=== PATIENT | male | born 1940 | race Caucasian/White ===

== ENCOUNTER 2023-12-01 15:10 | Outpatient (CLI) | payer MEDICARE, SELFPAY ==
--- NOTE | 2023-12-01 09:37 | DI.RAD_ITS ---
Exam(s) XR KNEE LT 4V AP,LAT,DIONNA,PAT EXAM: XR KNEE LT 4V AP,LAT,DIONNA,PAT CLINICAL HISTORY: eval L knee OA. TECHNIQUE: 2D digital imaging was performed. Four views. COMPARISON: No exams were available for comparison FINDINGS: BONES: No acute fracture is present. No bony destructive lesion is seen. Enthesophyte upper pole p atella. JOINTS: Severe narrowing of the lateral femoral tibial joint space with a [id number] appearance. P rominent periarticular spurring. For ring at the articular aspect of the patella. The patellofemora l joint space is maintained. No joint effusion is seen. SOFT TISSUE: Normal. IMPRESSION: Severe degenerative changes of lateral femoral tibial joint. DATA REPOSITORY: RADIATION DOSE DELIVERED:
== END 2023-12-01 15:11 | disposition home or self-care (01) ==
LOC: DIORS 15:11
PROVIDERS: PCP Family Medicine; Referring Provider Family Medicine; Visit Provider Student in an Organized Health Care Education/Training Program
DX: M17.12 Unilateral primary osteoarthritis, left knee; M21.062 Valgus deformity, not elsewhere classified, left knee
CPT/HCPCS: 99204; 73564

== ENCOUNTER 2023-12-22 15:23 | Outpatient (CLI) | payer MEDICARE, SELFPAY ==
--- NOTE | 2023-12-22 13:00 | DI.RAD_ITS ---
Exam(s) XR KNEE LT 1V XR STANDING ALIGNMENT EXAM: XR STANDING ALIGNMENT CLINICAL HISTORY: TKR Planning. TECHNIQUE: 2D digital imaging was performed. Standing AP views were performed from the pelvis throu gh the ankles. COMPARISON: CR XR KNEE LT 4V AP,LAT,DIONNA,PAT from 12/01/2023 CR XR KNEE LT 1V from 12/22/2023 FINDINGS: BONES: No acute fracture is present. No bony destructive lesion is seen. Leg length discrepancy: Proximally 2 centimeter overall leg length discrepancy with the right femoral head projecting superior to the left. JOINTS: Knees: Mild narrowing of the right medial femoral tibial joint space. Severe narrowing of th e lateral femoral tibial joint space of the left knee with periarticular spurring. Valgus angulation . Spurring at the articular aspect of the patella. Enthesophyte at quadriceps insertion. The ankle joints are unremarkable. The hip joints are unremarkable. SOFT TISSUE: Lower leg edema on the right. IMPRESSION: Severe degenerative changes of the lateral femoral tibial joint of the left knee.. Roughly 2 centimeter overall leg length discrepancy. DATA REPOSITORY: RADIATION DOSE DELIVERED:
[2023-12-22 14:19] LABS: HCT 38.7 % (40.0-50.0); HGB 12.5 g/dL (13.5-17.5); MCH 30.9 pg (27.0-33.0); MCHC 32.3 % (32.0-36.0); MCV 96 fL (80-95); MPV 10.7 fL (8.0-11.0); Platelet Count 256 10^3/uL (130-400); RBC 4.04 10^6/uL (4.36-5.78); RDW 14.9 % (11.8-14.1)
[2023-12-22 14:31] LABS: Anion Gap 7.1 mmol/L (3-11); BUN 35 mg/dL (7-18); CO2 29.9 mmol/L (21.0-32.0); CREATININE 1.3 mg/dL (0.70-1.30); Calcium 8.9 mg/dL (8.5-10.1); Chloride 106 mmol/L (98-107); Estimated GFR 55.19 (mL/min/1.73m2); Glucose 128 mg/dL (74-106); Potassium 4.8 mmol/L (3.5-5.1); Sodium 143 mmol/L (136-145)
== END 2023-12-22 15:24 | disposition home or self-care (01) ==
LOC: DIORS 15:23
PROVIDERS: Student in an Organized Health Care Education/Training Program; PCP Family Medicine; Visit Provider Physician Assistant
DX: M17.12 Unilateral primary osteoarthritis, left knee (principal); M21.062 Valgus deformity, not elsewhere classified, left knee; Z01.818 Encounter for other preprocedural examination
CPT/HCPCS: 80048; 85027; 73560; 77073

== ENCOUNTER 2023-12-31 07:05 | Day surgery (SDC) | payer MEDICARE, SELFPAY ==
--- NOTE | 2023-12-30 19:04 | W.ANESPRE ---
General Info Date of Service Date Performed: 12/31/23 Height: 6 ft Weight: 111.13 kg Body Mass Index (BMI): 33.2 Surgical Procedure: Operation Date: 12/31/23 10:40 Proposed Procedure Side Surgeon p Knee Total Arthroplasty w/OrthAlign Left Aren Austin MD Meds Allergies and Home Medications Allergies Allergy/AdvReac Type Severity Reaction Status Date / Time No Known Allergies Allergy Verified 12/31/23 07:13 Home Medication Medication Instructions Recorded lisinopril 40 mg tablet 40 mg PO DAILY 10/28/23 metoprolol succinate 25 mg 25 mg PO DAILY 10/28/23 tablet,extended release 24 hr simvastatin 40 mg tablet 40 mg PO DAILY 10/28/23 tamsulosin 0.4 mg capsule 0.4 mg PO DAILY 10/28/23 finasteride 5 mg tablet 5 mg PO DAILY 12/22/23 acetaminophen 500 mg tablet 1,000 mg (2 x 500 mg) PO TID #90 12/31/23 tabs aspirin 81 mg tablet,delayed 81 mg PO BID #60 tabs 12/31/23 release celecoxib 200 mg capsule 200 mg PO BID #60 caps 12/31/23 dexamethasone 4 mg tablet 4 mg PO DAILY #2 tabs 12/31/23 gabapentin 300 mg capsule 300 mg PO QHS #14 caps 12/31/23 oxycodone 5 mg tablet 5 mg PO Q4H PRN pain #20 tabs 12/31/23 pantoprazole 40 mg tablet,delayed 40 mg PO DAILY #30 tabs 12/31/23 release Current Visit Medications: Current Medications Generic Name Dose Route Start Last Admin Trade Name Freq PRN Reason Stop Dose Admin Ringer's Solution 1,000 mls @ 80 mls/hr 12/31/23 06:00 IV 12/31/23 23:59 INFUSION ORAL Cefazolin Sodium/Dextrose 2 gm in 50 mls @ 100 mls/hr 12/31/23 06:00 Ancef Duplex IVPB 12/31/23 23:59 PREOP ORAL IV Miscellaneous Supplies 1 each 12/31/23 06:00 Iv Access IV 12/31/23 23:59 DIRECTED ORAL Sodium Chloride 0 ml 12/31/23 06:00 Normal Saline Flush 10 Ml Syr IV 12/31/23 23:59 PRN PRN Sodium Chloride 0 ml 12/31/23 06:00 Normal Saline 10 Ml Vial IJ 12/31/23 23:59 DIRECTED PRN Sterile Water 0 ml 12/31/23 06:00 Water,Injection,Sterile 10 Ml Vial IJ 12/31/23 23:59 DIRECTED PRN PFSH Active Problems Active Problems: Problem Status Onset Code Acquired genu valgum of left knee M21.062 Localized osteoarthritis of left knee M17.12 Borderline type 2 diabetes mellitus R73.03 Obesity E66.9 Hypertension I10 Medical History Medical History BPH (benign prostatic hyperplasia) Lumbar spondylosis Allergic rhinitis History of gastric ulcer Surgical History Surgical History H/O colectomy Ileocolectomy 02/17/15 History of umbilical hernia repair Tobacco Smoking/Tobacco Use Status: Never Alcohol Alcohol Intake: never Substance Use Substance use: Never Substance use type: does not use Vital Signs and Lab Results Vital Signs Most Recent Vital Signs in EMR: Temp Pulse Resp BP Pulse Ox 36.3 C L 64 16 150/75 H 95 12/31/23 07:15 12/31/23 07:15 12/31/23 07:15 12/31/23 07:15 12/31/23 07:15 Lab Results Blood Type / Crossmatch: No Data to Display Complete Blood Count: White Blood Count 8.40 10^3/uL (4.4-10.8) 12/22/23 14:09 Red Blood Count 4.04 10^6/uL (4.36-5.78) L 12/22/23 14:09 Hemoglobin 12.5 g/dL (13.5-17.5) L 12/22/23 14:09 Hematocrit 38.7 % (40.0-50.0) L 12/22/23 14:09 Platelet Count 256 10^3/uL (130-400) 12/22/23 14:09 Complete Metabolic Panel: Sodium 143 mmol/L (136-145) 12/22/23 13:51 Potassium 4.8 mmol/L (3.5-5.1) 12/22/23 13:51 Chloride 106 mmol/L (98-107) 12/22/23 13:51 Carbon Dioxide 29.9 mmol/L (21.0-32.0) 12/22/23 13:51 BUN 35 mg/dL (7-18) H 12/22/23 13:51 Creatinine 1.3 mg/dL (0.70-1.30) 12/22/23 13:51 Est GFR (CKD-EPI 2020) 55.19 (mL/min/1.73m2) 12/22/23 13:51 Calcium 8.9 mg/dL (8.5-10.1) 12/22/23 13:51 Glucose 128 mg/dL (74-106) H 12/22/23 13:51 Liver Function Panel: No Data to Display Coagulation Panel: No Data to Display Cardiac Panel: No Data to Display Arterial Blood Gas: No Data to Display Venous Blood Gas: No Data to Display Pancreas Panel: No Data to Display Thyroid Panel: No Data to Display Infectious Disease: No Data to Display Blood Cultures: No Data to Display Toxicology Panel: No Data to Display Anesthesia Assessment and Plan Anesthesia History Personal History: No History of Anesthesia Complications Family History: No Family History of Anesthesia Complications Exercise Tolerance Exercise Tolerance: Metabolic Equivalents>4 Pertinent Negatives Pertinent Negatives: No Symptoms of GERD, No Major Pulmonary Symptoms or Complaints and No History of CVA/TIA Cardiac & Pulmonary Exam Cardiac Exam: Normal S1/S2 Heart Sounds Pulmonary Exam: Clear Bilateral Breath Sounds Implantable Cardiac Device Does patient have a Pacemaker or an ICD?: No Airway Exam Known Difficult Airway: No Mallampati Class: 2 Mouth Opening: Normal (> 3cm) Thyromental Distance: Greater than 3 cm Neck Range of Motion: Full ROM Neck Circumference: Normal Teeth Condition: Removable Dentures/Plates Upper and Removable Dentures/Plates Lower ASA Classification ASA Score: ASA 2 Emergency Case?: No NPO Status NPO Status: NPO Clears >2 hours, Solids >8 hours Anesthesia Plan Resuscitation Status: Full Code Anesthesia Technique: Spinal Anesthesia Airway Planned: Natural Airway Pain Management: Surgeon and patient request nerve block Monitors Used: Standard Monitors Preoperative Comments:: 83 yo male for TKA. Sig PMHx: HTN (lisinopril, metoprolol), DM2, lumbar spondylosis. never smoker.
[2023-12-31 07:15] VITALS: BP 150/75; PULSE 64; RESP 16; TEMP 36.3; O2SAT 95
--- NOTE | 2023-12-31 07:27 | W.PM.DSUDISC ---
Date of service: 12/31/23 Time of Service: 07:27 Discharge Plan Disposition Patient Disposition: Home Condition: Good Discharge Details Reason For Visit: L TKR Attending Provider: Aren Austin Primary Care Provider: Misty Gentile Home Meds and New Rx's Prescriptions: New acetaminophen 500 mg tablet 1,000 mg PO TID Qty: 90 3RF aspirin 81 mg tablet,delayed release (DR/EC) 81 mg PO BID Qty: 60 0RF celecoxib 200 mg capsule 200 mg PO BID Qty: 60 0RF dexamethasone 4 mg tablet 4 mg PO DAILY Qty: 2 0RF gabapentin 300 mg capsule 300 mg PO QHS Qty: 14 0RF pantoprazole 40 mg tablet,delayed release (DR/EC) 40 mg PO DAILY Qty: 30 0RF oxycodone 5 mg tablet 5 mg PO Q4H MDD 6 tabs PRN (Reason: pain) Qty: 20 0RF Continued finasteride 5 mg tablet 5 mg PO DAILY lisinopril 40 mg tablet 40 mg PO DAILY tamsulosin 0.4 mg capsule 0.4 mg PO DAILY simvastatin 40 mg tablet 40 mg PO DAILY metoprolol succinate 25 mg tablet extended release 24 hr 25 mg PO DAILY Discontinued meloxicam 15 mg tablet 15 mg PO DAILY acetaminophen 500 mg tablet 500 mg PO Q6H PRN Discharge Instructions Additional Instructions: Total Knee Discharge Instructions Activity: The most important activity is to walk and to work on gentle motion (both flexion and extension). You should try to take short walks a few times a day. It is important that when resting you work on keeping the knee straight. Avoid putting a pillow behind the knee as this will encourage flexion. Work on range of motion exercises as provided by Physical Therapy. - Start outpatient physical therapy within 2 weeks. - You should wear the HUDSON hose on both legs for 2 weeks. You may remove these at night. You may also use any compression sock in place of the HUDSON hose. - Utilize [employer] to review exercises, see videos on exercises and obtain basic information pertaining to your surgery and your recovery. Dressing: Remove the Oskar wrap by 2 days after your surgery and put on the HUDSON stocking given to you from the hospital. Keep the surgical dressing (underneath the OSKAR wrap) in place for at least one week. After the first week it may be removed and replaced with light gauze and tape or nothing. The wound and dressing may get wet after 3 days but avoid soaking the dressing or otherwise it will need to be changed. Many people prefer covering the dressing with cling wrap (saran wrap) to minimize it from getting soaked. If it gets wet, just pat dry. If it starts to peel off then it will need to be changed. Medications: - You should take Tylenol and anti-inflammatory Celebrex as your primary pain control medications. If the Celebrex is too expensive or not covered, please call the office for another alternative (Advil/Ibuprofen or Naproxen/Aleve) - You have been prescribed a stronger pain medication Oxycodone for breakthrough pain, take as needed as prescribed. - You have also been prescribed a stomach acid reduction agent Pantoprozole to help reduce stomach acid and reflux. - You have been prescribed Gabapentin to take at night for restlessness and nerve pain. - You will be taking Aspirin 81mg twice a day for DVT prevention unless instructed otherwise. - You have also been prescribed Decadron to take to control post-operative nausea and pain. You will start this tomorrow. - If you have constipation you should take Colace or Miralax (both [id number]). It takes most people 3-4 days to have a bowel movement. Follow-up: 2 weeks If you have any acute concerns or questions, please do not hesitate to contact the office at [phone]. You may contact Dr. Austin with any questions after hours through the hospital at [phone] or on his cell phone at [phone]. Stand Alone Forms: Anesthesia Discharge Inst., [place].Nerve Block Instructions, Chelly Gilliland ([facility]) Referrals: Aren Austin MD [ [facility] STAFF PHYSICIAN] - Equipment/Supplies: Walker Activity:: Activity as Tolerated Shower/Bathe:: 72 hours Diet:: As Tolerated Discharge Orders Discharge Orders: Discharge Order (Routine); Ordered 12/31/23 Ordered By: Aren Austin DS: Diagnosis Discharge Diagnosis (1) Acquired genu valgum of left knee: Status: Acute (2) Localized osteoarthritis of left knee: Status: Acute
[2023-12-31] MEDS: Lactated Ringers 1,000 ML 80 ML IV (07:56)
[2023-12-31] MEDS: Gabapentin 300 MG CAP PO (07:56)
[2023-12-31] MEDS: Celecoxib 200 MG CAP 400 MG PO (07:56)
[2023-12-31] MEDS: Acetaminophen 500 MG TAB 1000 MG PO (07:56)
[2023-12-31 08:04] VITALS: BP 140/77; PULSE 65; RESP 17; TEMP 37; O2SAT 97
[2023-12-31 08:43] VITALS: BP 143/74; PULSE 65; RESP 19; TEMP 37; O2SAT 97
--- NOTE | 2023-12-31 08:43 | W.ANESNERVE ---
Nerve Block Single Injection Procedure Date and Time Date Performed: 12/31/23 Procedure Start: 08:24 Location Where Procedure Performed Procedure Location: Day Surgery Unit Reason Performed: Postoperative Analgesia Requesting Provider: Aren Austin Timeout Performed Timeout Performed: Yes Monitoring Used ECG, Blood Pressure and SpO2 Sterility Sterility: Hand Hygiene, Surgical Cap, Surgical Mask and Chlorhexidine Sedation Given During Procedure Sedation Given (Indicate Dose Given): No Sedation given Patient Mental Status Patient Mental Status: Awake Nerve Block 1st Nerve Block: Laterality: Left Block Type: Adductor Canal Ultrasound Image Saved?: Yes Needle / Catheter Used: 100mm SonoPlex II Local Anesthetic Bolus (Indicate Dose Given): Lidocaine used for local infiltration of skin, Injected in 3-5ml increments after negative blood aspiration and Bupivacaine 0.25% Dose:: 15 ml Additives (Indicate Dose Given): None Ultrasound: Sterile probe cover and gel used Nerve Stimulator: Supplement to Ultrasound use and No twitch or parasthesia noted < 0.5 mA Paresthesia: None Procedure Tolerated: No Complications and Patient tolerated well Procedure Outcome: Successful Performed By: Richard Hernandez
[2023-12-31] MEDS: ceFAZolin 2 GM/50 ML BAG IVPB (08:59)
[2023-12-31] MEDS: TRANEXAMIC ACID/SOD. CHL. 1,000 MG/100 ML BAG 600 MG IVPB (09:11)
[2023-12-31 09:18] VITALS: BMI 33.2
[2023-12-31 11:01] VITALS: BP 130/62; PULSE 57; RESP 16; TEMP 36.4; O2SAT 93
[2023-12-31 11:27] VITALS: BP 132/66; PULSE 57; RESP 16; TEMP 36.4; O2SAT 94
--- NOTE | 2023-12-31 12:03 | W.PM.OP ---
Date of service: 12/31/23 Time of Service: 09:00 Operative Note Operative Note DATE OF PROCEDURE: 12/31/23 PRE-OP DIAGNOSIS: Left Knee Osteoarthritis with Valgus Deformity POST-OP DIAGNOSIS: same PROCEDURE: Left Total Knee Replacement with Intraoperative Navigation SURGEON: Aren Austin CREATIVE SERVICES COORDINATOR: Maia Devine ANESTHESIA TYPE: Spinal Refer to Anesthesia Record ESTIMATED BLOOD LOSS: 100 PATHOLOGY: none sent TOURNIQUET TIME: 0 COMPLICATIONS: None Patient was transported to: PACU Patient's condition: stable Implants: 1. Depuy Attune Cementless Cruciate Retaining Femoral Component, Size 7 2. Depuy Attune Cementless Fixed Bearing Tibial Component, Size 7 3. Depuy Attune 7x10 CR/FB Poly 4. Depuy Attune Patellar Component, Size 38 Indications: I have seen Lyle in clinic for symptoms of LEFT knee arthritis, confirmed with radiographic findings. Lyle has exhausted nonoperative methods and was having significant limitations in daily function and desired better function and less pain. I discussed the technical details of a knee replacement. I explained the risks of the procedure to include, but not limited to, bleeding, infection, pain, stiffness, fracture, damage to nerves and vessels, damage to muscles and tendons, loosening, need for repeat procedure, blood clot and cardiopulmonary demise. Despite these risks, he elected to proceed. Findings: There was significant signs of arthritis throughout the knee, particularly of the lateral femur. Procedure Description: Lyle was greeted in the preoperative holding area where the correct side was identified and marked. The consent was reviewed with the patient and signed. The history and physical was updated. All questions were answered. Preoperative mediacations were administered: Acetaminophen 1000mg, Celebrex 400mg, and Gabapentin 300mg. An adductor canal block was then administered by the anesthesia team in the [facility]. He was taken back to the operating room. A spinal anesthestic was then administered. The patient was placed into the supine position on the operating room table. A nonsterile tourniquet was placed high onto the leg. Posts were placed for positioning during the procedure. All bony prominences were well padded. Prophylactic antibiotics in the form of Cefazolin were administered. 1g of Tranxemic Acid was given intravenously within 30 minutes of incision. The left leg was then prepped with Chloraprep and draped in a standard fashion with impervious stockinette. A second prep with Chloraprep was performed prior to application of Iodine impregnated skin protection. A timeout to confirm correct identity, side and site, procedure, allergies, anesthesia, and medical concerns was performed. With the knee in some flexion, a midline incision was made overlying the knee. Full thickness skin flaps were raised once the extensor mechanism was encountered. These were raised medially and laterally. Any bleeding was controlled with electrocautery. Once the extensor mechanism was fully exposed, a medial parapatellar arthrotomy was performed in a flexed position. All bleeding from the arthrotomy and the geniculate arteries was coagulated. A medial subperiosteal peel was performed with electrocautery to the midcoronal plane. The fat pad was removed while keeping the patellar tendon protected. The anterior distal femur synovium was removed for later visualization. The ACL and PCL were resected and the anterior horn of the lateral meniscus was transected. The knee was then flexed with the patella everted. Large osteophytes from the tibia were removed. Large osteophytes from the femur were removed. A single starting pin was then placed 1cm anterior to the PCL insertion and the notch in the direction of the femoral head. The OrthoAlign device was applied over the pin. It was oriented to be in line with the epicondylar axis and the trochlear groove. It was then pinned into place. The navigation computer was then turned on and calibrated. The distal femur cut was set at 0 degrees varus and 3.5 degrees flexion. The distal femur cutting guide then was positioned for a 9mm cut. The distal femur was cut with an oscillating saw while protecting the soft tissues. The tibia was then addressed. The OrthoAlign device was placed over the tibial tubercle and medial tibia and secured into position. Once again, OrthoAlign was calibrated and then set for a 1.5 degree varus cut and 5 degrees of posterior slope. With this locked into position, the cut thickness stylus was used to assess cut thickness. The lateral side, most involved side, was set for a 6mm cut. This was then held in position and pinned into place with 2 additional pins and a cross pin for stability. The medial and lateral collateral ligaments were protected and the cut was performed. With this completed, it was assessed and noted to be of appropriate dimensions. The guide and OrthoAlign was removed. A spacer block was inserted and the knee was brought into extension to ensure enough space was present. . The Orthoalign gap balancing device was then placed in extension. This was used to ensure that the ligaments were properly balanced with up to 2 to 3 mm laxity laterally compared medially. The extension gap was measured as 22mm. The knee was then brought into 90 degrees of flexion and the ligament gas turbine assembler was once again placed. Under the same amount of force the flexion gap was measured. The Attune specific jig was placed and the flexion gap was made to match the extension gap. The femur was then sized as a size 7. The 4-in-1 cutting guide was the placed. An kaushik wing was used to confirm appropriate position of the anterior cut to avoid notching. This cutting guide was ensured to be flush on the cut surface and then pinned into place with headed pins. While protecting the soft tissues, quad tendon, and collateral ligaments, the anterior and posterior cuts were performed with a saw. The central two pins were removed and the posterior and anterior chamfers were cut next. The notch-cutting guide was placed. This was pinned to lateralize the femoral component as much as possible while keeping it flush on the cut surface. This was then pinned into position. A saw was used to make the notch cut. A rasp smoothed the cut surfaces. The medial and lateral menisci were removed. A trial femoral component was then inserted, impacted down to the cut surfaces, and the lug holes were drilled. A provisional trial tibial component was placed and the knee was brought through range of motion. The polyethylene was trialed until there was good flexion and extension with excellent stability to the medial and lateral collaterals. The patella was tracking without thumbs. A size 10mm polyethylene component provided the best range of motion and stability with less than 2mm gapping with medial and lateral stress and full extension without significant hyperextension. The tibial cut surface was fully exposed. The tibia was then sized as a 7. The tibia had been previously marked during trialing to correspond to the center of the tibial component to help with rotation. The trial was aligned to this taylor, approximately rotated to the medial 1/3rd of the tibial tubercle. The trial was pinned into place. The tibia was prepared with a reamer and a keel punch and lug holes. The knee was then brought into extension and the patella was measured as 29mm. Using the patellar clamp and cut guide, this was resected to a flat surface with at least 13mm of thickness remaining. The size 38 patella fit the best. This was oriented and then clamped into position. The lugs were drilled. The trial components were removed. The final components were opened on the back table. The periosteal and capsular tissues, especially posteriorly, around the knee were then systematically injected with a periarticular cocktail consisting of 246mg of Ropivacaine, 0.5mg of Epinephrine, 0.08mg of Clonidine, and 30mg of Ketorolac, diluted to 100cc. On the back table, with the implants opened, the cement was mixed. One batch of high viscosity cement was prepared with vacuum assistance. After the cement was ready a small amount was placed on the cut surface of the patella and the patellar button was clamped into position and held. While the cement was hardening, the cementless knee components were placed. Starting with the tibial component, the tibia was subluxed anteriorly and the lug holes of the component were lined up. The tibia was then impacted with an impactor and mallet until the tibial component was in contact with the tibia. Then, the femoral component was inserted. The lug holes were aligned and the component was impacted into position. The final polyethylene component was inserted. The knee was irrigated with Surgiphor Betadine solution. This was allowed to sit in the knee for 3 minutes and then it was thoroughly irrigated out with saline. After the cement had finally cured, approximately 15min, the clamp was removed from the patella and the knee was taken through range of motion. The patella was tracking with a no-thumbs technique. The capsule was then reapproximated with a No. 1 Vicryl at multiple locations. The capsule was finally closed with a No. 2 Stratafix, barbed suture. Deep tissues were then reapproximated with 0 Vicryl and 2-0 Vicryl. The skin was closed with a running 3-0 Monocryl in a subcuticular fashion. This was reinforced with skin glue. A Mepilex silver dressing was applied along with a [id number] SWAPNA wrap. A CryoCuff was applied. Lyle was transferred to the hospital bed without difficulty an suffering no apparent complication. Lyle has a good prognosis. Physical therapy will start today and without restrictions, weight-bearing as tolerated. Aspirin 81mg BID will be used for DVT prophylaxis.
--- NOTE | 2023-12-31 12:48 | PT.INIE ---
PT Notes Visit Reasons: L TKR Physical Therapy Day Surgery Initial Evaluation Date: 12/31/2023 Referring Doctor: VANDANA Falcon PT Orders: PT CONSULT: S/P Ortho surgery Precautions: WBAT on left LE with AD. 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 PMHX: Medical History Lumbar spondylosis Allergic rhinitis History of gastric ulcer Surgical History H/O colectomy Ileocolectomy 02/17/15 History of umbilical hernia repair Social History/Home Situation: Lives with in a private home with 2 steps to enter without rails. Son and daughter will be available to help out as needed. Independent with all aspects of ADLs prior to surgery. Uses 4 wheeled walker. Equipment Owned/DME: 4WW, SPC, leg catheter bag for a month now Subjective: Reported 3?4/10 pain on the left knee at rest that subsided to 2/10 with mobility performance. Denied headache, chest pain, and lightheadedness throughout session. Per nurse Ashli, patient uses a leg catheter bag. Objective: General Observation: Urinary leg bag in place. SWAPNA wraps to left LE. Cryocuff to left knee. TEDS to right foot. Mental Status: Alert and oriented x 4 Pain: As above ROM: Right Lower Extremity: Hip flexion WFL. Hip abduction WFL. Knee flexion WFL. Ankle dorsiflexion to neutral only. Ankle plantarflexion WFL. Left Lower Extremity: Hip flexion WFL. Hip abduction WFL. Knee flexion 0-10 degrees. Ankle dorsiflexion to neutral only. Ankle plantarflexion WFL. Strength: Right Lower Extremity: Hip flexors 5/5. Hip abductors 5/5. Knee flexors 5/5. Knee extensors 5/5. Ankle dorsiflexors 3-/5. Ankle plantarflexors 5/5. Left Lower Extremity:Hip flexors 4-/5. Hip abductors 4-/5. Knee flexors 3-/5. Knee extensors 4-/5. Ankle dorsiflexors 3-/5. Ankle plantarflexors 4-/5. Sensation: Intact as to pain and light pressure in bilateral lower extremities Bed Mobility/Transfers: Minimal cueing provided for use of B hands as needed for support, movement sequence, AD management, and posture to reduce fall risk and minimize pain report Supine to sit standby assist Sit to stand contact-guard assist Stand to sit standby assist Bed to chair contact-guard assist Gait: Facilitated safe and correct performance of level surface ambulation covering a distance of 150 feet using step-to heel toe gait pattern using front wheel walker and minimal verbal cueing for safe gait pattern, AD management, and posture to reduce fall risk and minimize pain level. Stairs: Guided patient with correct and safe negotiation of 3 x 4 inch steps and 2 x 6 inch steps while holding onto a rail with 1 hand and using a single-point cane with the other hand with step to gait pattern requiring minimal verbal cueing for correct limb sequence, increased knee flexion on the left during each ascent, hand placement, and posture to reduce fall risk and minimize pain report. Balance: Static Sitting: Normal Dynamic Sitting: Normal Static Standing: Fair Dynamic Standing: fair Special Tests: Mobility Limitations Standardized Measure [facility] AM-PAC 6 clicks Basic Mobility Inpatient Short Form: Raw Score: 22 CMS Score: 21% deficit Informed Consent/Education: Patient instructed in purpose of PT consult. Packet containing TKA exercise protocol has been given to patient. Education and training on initial set of exercises that can be done at home have been completed with patient. Trained patient with correct performance of exercises below to maximize motor control, joint flexibility, soft tissue extensibility of the L knee musculature: Access Code: [email or web address] URL: [email or web address] Date: 12/31/2023 Prepared by: Lucinda Whalen Exercises - Supine Quad Set - 1 x daily - 7 x weekly - 1 sets - 10 reps - 5 hold - Supine Heel Slide - 1 x daily - 7 x weekly - 1 sets - 10 reps - 5 hold - Supine Ankle Pumps - 1 x daily - 7 x weekly - 1 sets - 10 reps - 5 hold - Small Range Straight Leg Raise - 1 x daily - 7 x weekly - 1 sets - 10 reps - 5 hold - Seated March - 1 x daily - 7 x weekly - 1 sets - 10 reps - 5 hold Assessment: Chanel requires use of a front wheeled walker for mobility ADL performance to maximize independence and reduce fall risk. Patient presents with clinical signs and symptoms consistent with current/admitting diagnoses that have resulted to mobility limitations, gait instability, generalized weakness, and impairment of motor control as demonstrated by the following impairment level findings: 1. Decreased strength to left knee major muscle groups 2. Impaired standing balance 3. Limitation of joint range of motion for active L knee flexion Impairments are contributing to the following functional limitations: 1. Inability to safely ambulate without assistive device 2. Increase completion time for mobility ADL performance 3. Increased fall risk Patient is assessed as a 38057 moderate complexity based on the following: History: 83-year-old male with impairment level findings, functional limitations, and past medical history as indicated above Examination: Demonstrable impairment in strength, balance, and mobility level with underlying impairments and functional limitations as documented above Presentation: Evolving Decision Makin moderate complexity Goals: N/A. PT evaluation and 1-2 treatment sessions only for functional mobility training using recommended AD and for HEP instruction. Plan of Care/Treatment Plan: N/A. PT evaluation and 1-2 treatment session only for functional mobility training using recommended AD and for HEP instruction. DISCHARGE RECOMMENDATIONS: Home when medically cleared by orthopedic surgeon. Recommend outpatient PT services in order to optimize functional mobility outcomes and facilitate return to independent community ambulation without an assistive device. TREATMENT CODE/TIME: 9716 2 x 20 minutes for 1 unit 9753 0 x 17 minutes for 1 unit (12:48-13:45). Thank you for the opportunity to participate in the care of this patient. Please sign an return this page within 30 days if you agree with the above POC. Thank you! Physician Signature Date [facility] Thank you for the opportunity to participate in the care of this patient. Lucinda Whalen PT, DPT, CLT [facility] [place], [place]
[2023-12-31 13:27] VITALS: BP 144/75; PULSE 62; RESP 16; TEMP 36.4; O2SAT 100
--- NOTE | 2023-12-31 14:03 | W.ANESPOSTOP ---
Postoperative Evaluation Date, Time and Location Date Performed: 12/31/23 Time Performed: 14:00 Patient Location: Day Surgery Unit Vital Signs Most Recent Imported Vital Signs: Most Recent Vital Signs Temp Pulse Resp BP Pulse Ox 36.4 C L 62 16 144/75 H 100 12/31/23 13:27 12/31/23 13:27 12/31/23 13:27 12/31/23 13:12/31/23 13:27 Pain Score Most Recent Pain Score: Most Recent Pain Score Pain Level 0 12/31/23 13:27 Assessment Mental Status: Awake (Alert & Oriented to Patient Baseline) Airway and Respiratory Function: Patent airway with normal (patient baseline) respiratory exam Cardiovascular Function: Hemodynamically Stable Hydration Status: Adequately Hydrated Nausea & Vomiting: No Nausea or Vomiting Pain: Pt. Denies Any Pain Peripheral Nerve Block: Regional nerve block not resolved at time of post operative discharge
== END 2023-12-31 14:08 | disposition home or self-care (01) ==
PROVIDERS: PCP Family Medicine; Visit Provider Student in an Organized Health Care Education/Training Program
PROC: (CPT 27447; principal; 2023-12-31 09:00)
DX: M17.12 Unilateral primary osteoarthritis, left knee (principal); M21.062 Valgus deformity, not elsewhere classified, left knee; R73.03 Prediabetes; I10 Essential (primary) hypertension; E66.9 Obesity, unspecified; Z68.33 Body mass index [BMI] 33.0-33.9, adult
CPT/HCPCS: 20985; 27447; C1776; 76942; 97162; 97530; J0665; J0690; J1100; J2001; J2250; J2371; J2401; J2405; J2704

== ENCOUNTER 2024-01-15 14:27 | Outpatient (CLI) | payer MEDICARE, SELFPAY ==
--- NOTE | 2024-01-15 09:30 | DI.RAD_ITS ---
Exam(s) XR KNEE LT 1V XR STANDING ALIGNMENT EXAM: XR STANDING ALIGNMENT and XR knee LT 1 V CLINICAL HISTORY: 1ST POST OP L TKA. TECHNIQUE: 2D digital imaging was performed. Five images were obtained. COMPARISON: CR XR KNEE LT 1V from 12/22/2023 CR XR STANDING ALIGNMENT from 12/22/2023 FINDINGS: BONES: The hips are well maintained. There is mild narrowing of the medial femoral tibial joint of t he right knee. There is a left total knee replacement. The orthopedic hardware appears in good posi tion. There are no lucency seen in or about the orthopedic hardware. There is an enthesophyte at th e superior patella. The ankles are well maintained.There is no significant leg length discrepancy. SOFT TISSUE: Normal. IMPRESSION: Status post left total knee replacement. DATA REPOSITORY: RADIATION DOSE DELIVERED:
== END 2024-01-15 14:28 | disposition home or self-care (01) ==
LOC: DIORS 14:57
PROVIDERS: PCP Family Medicine; Visit Provider Physician Assistant
DX: Z96.652 Presence of left artificial knee joint (principal); Z47.1 Aftercare following joint replacement surgery
CPT/HCPCS: 73560; 77073

== ENCOUNTER → 2024-02-12 11:12 | Outpatient (BNVA) | payer MEDICARE, SELFPAY | PROVIDERS: PCP Family Medicine; Referring Provider Family Medicine | DX: Z47.1 Aftercare following joint replacement surgery (principal); M76.52 Patellar tendinitis, left knee; Z96.652 Presence of left artificial knee joint ==

== ENCOUNTER 2024-02-26 15:46 | Outpatient (CLI) | payer MEDICARE, SELFPAY ==
--- NOTE | 2024-02-26 12:03 | DI.RAD_ITS ---
Exam(s) XR KNEE LT 2V AP,LAT EXAM: XR KNEE LT 2V AP,LAT CLINICAL HISTORY: pain. TECHNIQUE: 2D digital imaging was performed. Three views. COMPARISON: CR XR STANDING ALIGNMENT from 01/15/2024 CR XR KNEE LT 1V from 01/15/2024 FINDINGS: BONES: No acute fracture is present. No bony destructive lesion is seen. JOINTS: There has been no change in the total knee prosthesis. The knee is normally aligned. No join t effusion is seen. SOFT TISSUE: Normal. IMPRESSION: Stable appearance of total knee prosthesis. DATA REPOSITORY: RADIATION DOSE DELIVERED:
--- NOTE | 2024-02-26 12:10 | DI.RAD_ITS ---
Exam(s) XR HIP LT COMPLETE AP PELVIS EXAM: XR HIP LT COMPLETE AP PELVIS CLINICAL HISTORY: pain. TECHNIQUE: 2D digital imaging was performed. Three views. COMPARISON: CR XR STANDING ALIGNMENT from 12/22/2023 FINDINGS: BONES: No acute fracture is present. No bony destructive lesion is seen. JOINTS: No dislocation present. The hip joint spaces are maintained. There is mild periarticular spu rring. The SI joints and pubic symphysis are unremarkable. SOFT TISSUE: Metallic coils related to right lower abdominal wall hernia repair. IMPRESSION: Mild degenerative changes of the hips. DATA REPOSITORY: RADIATION DOSE DELIVERED:
== END 2024-02-26 15:47 | disposition home or self-care (01) ==
LOC: DIORS 15:46
PROVIDERS: PCP Family Medicine; Referring Provider Family Medicine; Visit Provider Student in an Organized Health Care Education/Training Program
DX: Z47.1 Aftercare following joint replacement surgery (principal); M16.12 Unilateral primary osteoarthritis, left hip; Z96.652 Presence of left artificial knee joint
CPT/HCPCS: 20611; J1010; 73502; 73560

== ENCOUNTER → 2024-03-08 01:43 | Outpatient (CLI) | payer MEDICARE, SELFPAY ==
--- NOTE | 2024-03-08 08:05 | DI.CT_ITS ---
Exam(s) CT LOWER EXTREMITY LT WO EXAM: CT LOWER EXTREMITY LT WO CLINICAL HISTORY: pain, spontaneous disruption capsular ligament lt knee, hx total knee. TECHNIQUE: Imaging Protocol: Axial computed tomography images with coronal and sagittal reformatted images were created and reviewed. COMPARISON: CR XR KNEE LT 2V AP,LAT from 02/26/2024 FINDINGS: Bones: The patient has a left total knee replacement. Within the limits of the examination, no luce ncies are seen about the orthopedic hardware to suggest loosening. No fracture or dislocation is odalys ntified. Bony alignment is satisfactory. No cellulitic or osteomyelitic changes are identified. No lytic or sclerotic lesions are identified. Soft Tissues: There is thickening of the medial retinaculum. There also is a question of discontinui ty of the medial retinaculum (series 7, image 14). There is marked muscular fatty atrophy present. There is a small suprapatellar joint effusion. Atherosclerotic calcification is present. IMPRESSION: 1. Left total knee replacement. No lucencies are seen about the orthopedic hardware to suggest loose cheli. 2. Question of discontinuity of the medial retinaculum suspicious for tear. There is thickening of t he medial retinaculum. 3. Small suprapatellar joint effusion. 4. Marked muscular fatty atrophy. RADIATION DOSE DELIVERED: Total DLP Total DLP DATA REPOSITORY: All CT scans at this facility are submitted to the National Radiology Data Registry (NRDR) Dose Index Registry (DIR) with the [employer] (A[employer]). RADIATION OPTIMIZATION: All CT scans at this facility use at least one of these dose optimization te chniques: automated exposure control; mA and/or kV adjustment per patient size (includes targeted exa ms where dose is matched to clinical indication); or iterative reconstruction.
== END ==
PROVIDERS: PCP Family Medicine; Visit Provider Student in an Organized Health Care Education/Training Program
DX: M23.672 Other spontaneous disruption of capsular ligament of left knee (principal); Z96.652 Presence of left artificial knee joint
CPT/HCPCS: 73700

== ENCOUNTER 2024-03-09 13:11 | Observation (INO) | payer MEDICARE, SELFPAY ==
[2024-03-09] VITALS (12 sets, daily range): BP systolic 100–145; BP diastolic 65–88; PULSE 57–98; RESP 15–20; TEMP 36–37; O2SAT 94–100; BMI 33.6
--- NOTE | 2024-03-09 13:13 | W.PM.DS.N ---
Discharge Plan Disposition Patient Disposition: Home Condition: Good Discharge Details Reason For Visit: Left knee arthrotomy rupture; s/p left TKA Attending Provider: Aren Austin Primary Care Provider: Misty Gentile Home Meds and New Rx's Prescriptions: No Action finasteride 5 mg tablet 5 mg PO DAILY gabapentin 300 mg capsule 300 mg PO QHS Qty: 30 0RF celecoxib 200 mg capsule 200 mg PO BID Qty: 60 0RF lisinopril 40 mg tablet 40 mg PO DAILY tamsulosin 0.4 mg capsule 0.4 mg PO DAILY simvastatin 40 mg tablet 40 mg PO DAILY metoprolol succinate 25 mg tablet extended release 24 hr 25 mg PO DAILY oxycodone 5 mg tablet 5 mg PO BID MDD 2 tabs PRN (Reason: pain) Qty: 14 0RF acetaminophen 500 mg tablet 1,000 mg PO TID Qty: 90 3RF Discharge Instructions Additional Instructions: Quadriceps Discharge Instructions Activity: You may weight bear as tolerated. You should wear the knee immobilizer for any mobilization. Do not attempt at bending the knee more than a few degrees until instructed to do so by Dr. Austin. You may remove the immobilizer or open the top of the immobilizer while resting. You may apply the CryoCuff on the top of the knee. Dressing: Remove the Oskar wrap by 2 days after your surgery. You have a vacuum assisted dressing in place. This should keep blinking a green light. If another light comes on, please contact the office. It may need to be changed at least once and you should contact the office for instructions on this. This dressing should stay in place for one week. After the one week, you may remove the dressing and apply some light gauze and an OSKAR wrap over the wound. The wound was closed with jeramie. It may get wet after the initial vacuum dressing comes off. Medications: - You should take Tylenol and anti-inflammatory Ibuprofen as your primary pain control medications. - You have been prescribed a stronger pain medication tramadol for breakthrough pain, take as needed as prescribed. - You will be taking your home Pradaxa for DVT prevention - If you have constipation you should take Colace or Miralax (both [id number]). It takes most people 3-4 days to have a bowel movement. Follow-up: 2 weeks If you have any acute concerns or questions, please do not hesitate to contact the office at [phone]. You may contact Dr. Austin with any questions after hours through the hospital at [phone] or on his cell phone at [phone]. Discharge Orders Discharge Orders: Discharge Order (Routine); Ordered 03/09/24 Ordered By: Misty Bhatti DS: Summary Quality:SDOH Health Related Social Needs: No Data to Display DS: Data Vitals/I&O Vitals and I&O: Vital Signs Temperature 97.7 F 03/09/24 09:24 Pulse 57 L 03/09/24 09:24 Respiratory Rate 16 03/09/24 09:24 Blood Pressure 107/65 03/09/24 09:24 Pulse Oximetry 96 03/09/24 09:24 Oxygen Delivery Method Room Air 03/09/24 09:24 Pain Level 0 03/09/24 09:24 Intake & Output 03/08/24 03/09/24 03/09/24 23:59 11:59 23:59 Other: Emesis Description None PFSH All Active Problems Other spontaneous disruption of capsular ligament of left knee (Acute) Arthritis of left hip (Acute) Patellar tendinitis, left knee (Acute) History of total left knee replacement (Acute 12/31/23) Acquired genu valgum of left knee (Acute) Localized osteoarthritis of left knee (Acute) Borderline type 2 diabetes mellitus (Acute) Obesity (Chronic) Hypertension (Chronic) Medical History BPH (benign prostatic hyperplasia) Lumbar spondylosis Allergic rhinitis History of gastric ulcer Surgical History H/O colectomy Ileocolectomy 02/17/15 History of umbilical hernia repair Social History Smoking/Tobacco Use Status: Never Smoking risk assessment performed?: Yes Alcohol Intake: never Drug use: Never Substance use type: does not use Housing: house Do you feel safe at home: Yes Do you feel safe in your relationship?: Yes
[2024-03-09] MEDS: Lactated Ringers 1,000 ML 80 ML IV (13:34)
--- NOTE | 2024-03-09 13:49 | W.ANESPRE ---
General Info Date of Service Date Performed: 03/09/24 Height: 6 ft Weight: 112.5 kg Body Mass Index (BMI): 33.6 Surgical Procedure: Operation Date: 03/09/24 16:25 Proposed Procedure Side Surgeon p I&D, Secondary Closure Lt Knee Left Aren Austin MD Meds Allergies and Home Medications Allergies Allergy/AdvReac Type Severity Reaction Status Date / Time No Known Allergies Allergy Verified 03/09/24 13:05 Home Medication Medication Instructions Recorded lisinopril 40 mg tablet 40 mg PO DAILY 10/28/23 metoprolol succinate 25 mg 25 mg PO DAILY 10/28/23 tablet,extended release 24 hr simvastatin 40 mg tablet 40 mg PO DAILY 10/28/23 tamsulosin 0.4 mg capsule 0.4 mg PO DAILY 10/28/23 finasteride 5 mg tablet 5 mg PO DAILY 12/22/23 acetaminophen 500 mg tablet 1,000 mg (2 x 500 mg) PO TID #90 12/31/23 tabs celecoxib 200 mg capsule 200 mg PO BID #60 caps 02/12/24 oxycodone 5 mg tablet 5 mg PO BID PRN pain #14 tabs 02/23/24 gabapentin 300 mg capsule 300 mg PO QHS #30 caps 02/26/24 Current Visit Medications: Current Medications Generic Name Dose Route Start Last Admin Trade Name Freq PRN Reason Stop Dose Admin Acetaminophen 1,000 mg 03/09/24 06:00 Acetaminophen 500 Mg Tab PO 03/09/24 23:59 PREOP ORAL Acetaminophen 650 mg 03/09/24 13:11 Acetaminophen 325 Mg Tab PO 04/08/24 13:10 Q4H PRN PRN Hydrocodone Bitart/Acetaminophen 0 tab 03/09/24 13:11 Hydrocodone 5/Acetaminophen 325 Tab PO 04/08/24 13:10 Q3H PRN PRN Pain Celecoxib 400 mg 03/09/24 06:00 Celecoxib 200 Mg Cap PO 03/09/24 23:59 PREOP ORAL Hydromorphone HCl 0.5 mg 03/09/24 13:11 Hydromorphone 2 Mg/Ml Syr IVP 04/08/24 13:10 Q2H PRN PRN Ringer's Solution 1,000 mls @ 80 mls/hr 03/09/24 06:00 03/09/24 13:34 IV 03/09/24 23:59 80 mls/hr INFUSION ORAL Administration Cefazolin Sodium/Dextrose 2 gm in 50 mls @ 100 mls/hr 03/09/24 06:00 Ancef Duplex IVPB 03/09/24 23:59 PREOP ORAL Tranexamic Acid/Sodium Chloride 1,000 mg in 100 mls @ 600 mls/hr 03/09/24 06:00 IVPB 03/09/24 23:59 PREOP ORAL Cefazolin Sodium/Dextrose 1 gm in 50 mls @ 100 mls/hr 03/09/24 14:00 Ancef Duplex IVPB 03/10/24 06:29 Q8H ORAL IV Miscellaneous Supplies 1 each 03/09/24 06:00 Iv Access IV 03/09/24 23:59 DIRECTED ORAL Ondansetron HCl 4 mg 03/09/24 13:11 Ondansetron 4 Mg/2 Ml Vial IVP 04/08/24 13:10 Q6H PRN PRN Nausea Oxycodone HCl 0 mg 03/09/24 13:11 Oxycodone 5 Mg Tab PO 04/08/24 13:10 Q3H PRN PRN Pain Sodium Chloride 0 ml 03/09/24 06:00 Normal Saline Flush 10 Ml Syr IV 03/09/24 23:59 PRN PRN Sodium Chloride 0 ml 03/09/24 06:00 Normal Saline 10 Ml Vial IJ 03/09/24 23:59 DIRECTED PRN Sterile Water 0 ml 03/09/24 06:00 Water,Injection,Sterile 10 Ml Vial IJ 03/09/24 23:59 DIRECTED PRN PFSH Active Problems Active Problems: Problem Status Onset Code Other spontaneous disruption of capsular ligament of left knee M23.672 Arthritis of left hip M16.12 Patellar tendinitis, left knee M76.52 History of total left knee replacement 12/31/23 Z96.652 Acquired genu valgum of left knee M21.062 Localized osteoarthritis of left knee M17.12 Borderline type 2 diabetes mellitus R73.03 Obesity E66.9 Hypertension I10 Medical History Medical History BPH (benign prostatic hyperplasia) Lumbar spondylosis Allergic rhinitis History of gastric ulcer Surgical History Surgical History H/O colectomy Ileocolectomy 02/17/15 History of umbilical hernia repair Tobacco Smoking/Tobacco Use Status: Never Alcohol Alcohol Intake: never Substance Use Substance use: Never Substance use type: does not use Vital Signs and Lab Results Vital Signs Most Recent Vital Signs in EMR: Most Recent Vital Signs Temp Pulse Resp BP Pulse Ox 36.4 C L 98 H 16 131/81 96 03/09/24 13:08 03/09/24 13:08 03/09/24 13:08 03/09/24 13:08 03/09/24 13:08 Lab Results Blood Type / Crossmatch: No Data to Display Complete Blood Count: No Data to Display Complete Metabolic Panel: No Data to Display Liver Function Panel: No Data to Display Coagulation Panel: No Data to Display Cardiac Panel: No Data to Display Arterial Blood Gas: No Data to Display Venous Blood Gas: No Data to Display Pancreas Panel: No Data to Display Thyroid Panel: No Data to Display Infectious Disease: No Data to Display Blood Cultures: No Data to Display Toxicology Panel: No Data to Display Anesthesia Assessment and Plan Anesthesia History Personal History: No History of Anesthesia Complications Family History: No Family History of Anesthesia Complications Exercise Tolerance Exercise Tolerance: Metabolic Equivalents>4 Pertinent Negatives Pertinent Negatives: No Symptoms of GERD, No Major Cardiovascular Symptoms or Complaints and No Major Pulmonary Symptoms or Complaints Cardiac & Pulmonary Exam Cardiac Exam: Normal S1/S2 Heart Sounds Pulmonary Exam: Clear Bilateral Breath Sounds Implantable Cardiac Device Does patient have a Pacemaker or an ICD?: No Airway Exam Known Difficult Airway: No Mallampati Class: 2 Mouth Opening: Normal (> 3cm) Thyromental Distance: Greater than 3 cm Neck Range of Motion: Full ROM Neck Circumference: Normal Teeth Condition: Removable Dentures/Plates Upper and Removable Dentures/Plates Lower ASA Classification ASA Score: ASA 2 Emergency Case?: No NPO Status NPO Status: NPO Clears >2 hours, Solids >8 hours Anesthesia Plan Resuscitation Status: Full Code Anesthesia Technique: Spinal Anesthesia Airway Planned: Natural Airway Monitors Used: Standard Monitors
[2024-03-09] MEDS: Celecoxib 200 MG CAP 400 MG PO (13:51)
[2024-03-09] MEDS: Acetaminophen 500 MG TAB 1000 MG PO ×2 (13:53→19:54)
[2024-03-09] MEDS: ceFAZolin 2 GM/50 ML BAG IVPB (14:59)
[2024-03-09] MEDS: TRANEXAMIC ACID/SOD. CHL. 1,000 MG/100 ML BAG 600 MG IVPB (15:05)
--- NOTE | 2024-03-09 16:25 | ROE_ITS ---
Date of service: 03/09/24 Time of Service: 15:00 Operative Note Operative Note DATE OF PROCEDURE: 03/09/24 PRE-OP DIAGNOSIS: Arthrotomy Rupture - Left Knee PROCEDURE: Secondary repair of arthrotomy rupture - LEFT knee SURGEON: Aren Austin [employer] TE[employer]ER: Misty Bhatti ANESTHESIA TYPE: Spinal Refer to Anesthesia Record ESTIMATED BLOOD LOSS: 50 PATHOLOGY: none sent TOURNIQUET TIME: 0 COMPLICATIONS: None Patient was transported to: PACU Patient's condition: stable Indications: Lyle is an 84-year-old who is about 2-month status post left knee replacement. He is doing very well at his 2-week visit. But unfortunately noticed a decline with increasing pain with the use of the leg and inability to ambulate without significant use of his arms and an assistive device. Was unclear what was going on. He had no reported trauma. However, after further evaluation and time it was clear that he had a deficiency of his arthrotomy. CT scan was also used to confirm this. Therefore, I recommended proceeding with a secondary arthrotomy repair given his active knee extension weakness and pain. I reviewed the techni trinity features of the case. I discussed the risk to include bleeding, infection, pain, stiffness, retear, weakness, need for repeat procedures. Despite these risk, he elects to proceed Findings: There was a defect of the arthrotomy from the apex proximally all the way through the medial retinacular of the knee at the level of the patellar tendon. The knee itself was debrided of any synovitis and irrigated thoroughly. The arthrotomy and quadriceps was closed with a pants over vest repair utilizing #2 FiberWire and suture tape. Procedure Description: Lyle was greeted in the preoperative holding area where the correct side was identified and marked. The consent was reviewed with the patient and signed. The history and physical was updated. All questions were answered. Preoperative medications were administered: Acetaminophen 1000mg, Celebrex 400mg, and Gabapentin 300mg. An adductor canal block was then administered by the anesthesia team in the DSU. Lyle was taken back to the operating room. A spinal anesthestic was administered. The patient was placed into the supine position on the operating room table. Posts were placed for positioning during the procedure. All bony prominences were well padded. Prophylactic antibiotics in the form of Cefazolin were administered. The left leg was then prepped with Chloraprep and draped in a standard fashion with impervious stockinette. A second prep with Chloraprep was performed prior to application of Iodine impregnated skin protection. A timeout to confirm correct identity, side and site, procedure, allergies, anesthesia, and medical concerns was performed. With the knee in some flexion, a midline incision was made overlying the knee utilizing the previous incision. Full thickness skin flaps were raised once the extensor mechanism was encountered. These were raised medially and laterally. There is an obvious defect of the quadriceps repair in the arthrotomy with a diaz of joint fluid. Any bleeding was controlled with electrocautery. Medial and lateral skin flaps were raised to fully evaluate the extensor me chanism. The defect was quite obvious. It ended at the level of the patellar ligament. The proximal extent went to the apex of the quadriceps tendon but did not extend into the muscles themselves. There was a fairly dense false tendon which was present which was incised. Using a curette and rongeur a debrided down any of the early scar formation to show tendinous material. Any thick or robust healing tissue was left in place to utilize and incorporated into the repair. Once the tendon was encountered it was able to be easily mobilized back over without significant tension and at 90 degrees of flexion. A synovectomy was performed within the knee. The knee was thoroughly irrigated with Surgiphor Betadine solution. Once again, debridement was performed of any synovitis around the arthrotomy site and quadriceps repair site. The periosteal and capsular tissues were then systematically injected with a periarticular cocktail consisting of 50cc ropivacaine, epinephrine, clonidine, and ketorolac. I then performed a pants over vest type closure utilizing #2 FiberWire. The tenderness bulk of the quadriceps as well as the retinaculum was identified. These were sutured such that there was overlap of the tissues bringing the tendon bulk next to an adjacent to the tendon bulk of the other side closing down the gap. This was done for the length of the arthrotomy to the level of the patella. At the level of the patella simple sutures were utilized to reapproximate these tissues. There is excellent mobilization of the tissues and the arthrotomy was stable at 90 to 100 degrees. The sutures were then tied sequentially. Interval suture tape was placed to close on any extra gaps or on the edge of the repair of overlap tissue. The knee was tested and once again was stable to 100 degrees of flexion. The deep tissues were then closed with a 0 Vicryl followed by 2-0 Vicryl. The skin was closed with a running 3-0 Monocryl reinforced with skin glue. A Mepilex silver dressing was applied followed by an Oskar wrap from foot to thigh. Lyle has a gaurded prognosis. Aspirin 81mg BID will be used for DVT prophylaxis. He will be able to mobilize weightbearing as tolerated with physical therapy. The knee was stable however, would like to support this healing process with a knee immobilizer while weightbearing. He has no other restrictions except I would not try to force the flexion initially. He will be kept in observation to work with physical therapy.
--- NOTE | 2024-03-09 17:02 | W.ANESPOSTOP ---
Postoperative Evaluation Date, Time and Location Date Performed: 03/09/24 Time Performed: 16:55 Patient Location: Med/Surg Vital Signs Most Recent Imported Vital Signs: Most Recent Vital Signs Temp Pulse Resp BP Pulse Ox 36.9 C 68 18 107/65 96 03/09/24 16:50 03/09/24 16:50 03/09/24 16:50 03/09/24 16:50 03/09/24 16:50 Pain Score Most Recent Pain Score: Most Recent Pain Score Pain Level 0 03/09/24 16:50 Assessment Mental Status: Awake (Alert & Oriented to Patient Baseline) Airway and Respiratory Function: Patent airway with normal (patient baseline) respiratory exam Cardiovascular Function: Hemodynamically Stable Hydration Status: Adequately Hydrated Nausea & Vomiting: No Nausea or Vomiting Pain: Pt. Denies Any Pain Peripheral Nerve Block: Patient did not receive a nerve block Postoperative Comments:: Spinal has not fully resolved, discussed spinal assessment with floor RN. Patient awake and plan to call home and excited to eat dinner.
[2024-03-09] MEDS: HYDROmorphone 2 MG/ML SYR 0.5 MG IVP ×2 (17:39→21:51)
[2024-03-09] MEDS: Normal Saline Flush 10 ML SYR IV ×2 (17:40→19:55)
[2024-03-09] MEDS: HYDROcodone 5/Acetaminophen 325 TAB PO ×2 (18:19→19:07)
[2024-03-09] MEDS: Gabapentin 300 MG CAP PO (19:55)
[2024-03-09] MEDS: Tranexamic Acid 650 MG TAB 1300 MG PO (19:55)
[2024-03-09] MEDS: Celecoxib 200 MG CAP PO (19:55)
[2024-03-09] MEDS: Tamsulosin 0.4 MG CAPCR PO (21:52)
[2024-03-09] MEDS: ceFAZolin 1 GM/50 ML BAG IVPB (21:52)
[2024-03-09] MEDS: Simvastatin 40 MG TAB PO (21:52)
[2024-03-10] MEDS: HYDROcodone 5/Acetaminophen 325 TAB PO (03:28)
[2024-03-10 03:36] VITALS: BP 133/78; PULSE 67; RESP 15; TEMP 36.4; O2SAT 94
[2024-03-10] MEDS: ceFAZolin 1 GM/50 ML BAG IVPB (05:28)
[2024-03-10 07:31] VITALS: BP 135/71; PULSE 68; RESP 20; TEMP 36.8; O2SAT 95
--- NOTE | 2024-03-10 07:33 | DSE_ITS ---
Date of service: 03/10/24 Time of Service: 07:33 DS: Diagnosis Discharge Diagnosis (1) Other spontaneous disruption of capsular ligament of left knee: Status: Acute Discharge Plan Disposition Patient Disposition: Home Condition: Good Discharge Details Reason For Visit: Left knee arthrotomy rupture Admit Date/Time: 03/09/24 13:11 Admit Provider: Aren Austin Attending Provider: Aren Austin Primary Care Provider: Misty Gentile Hospital Course Hospital Course: Lyle was admitted to the medical surgical floor following his procedure. He tolerated procedure well. He was able to demonstrate an active straight leg raise which was better than his preoperative state. He worked with physical therapy and was deemed safe for discharge to home. He was voiding into his catheter without any changes. Home Meds and New Rx's Prescriptions: New methocarbamol 750 mg Tablet 750 mg PO TID PRN PRNQty: 21 0RF aspirin 81 mg tablet,delayed release (DR/EC) 81 mg PO BID Qty: 60 0RF oxycodone 5 mg tablet 5 mg PO Q6H PRN (Reason: pain) Qty: 15 0RF Continued finasteride 5 mg tablet 5 mg PO DAILY lisinopril 40 mg tablet 40 mg PO DAILY tamsulosin 0.4 mg capsule 0.4 mg PO DAILY simvastatin 40 mg tablet 40 mg PO DAILY metoprolol succinate 25 mg tablet extended release 24 hr 25 mg PO DAILY acetaminophen 500 mg tablet 1,000 mg PO TID Qty: 90 3RF celecoxib 200 mg capsule 200 mg PO BID Qty: 60 0RF Discontinued gabapentin 300 mg capsule 300 mg PO QHS Qty: 30 0RF oxycodone 5 mg tablet 5 mg PO BID MDD 2 tabs PRN (Reason: pain) Qty: 14 0RF Discharge Instructions Additional Instructions: Quadriceps Discharge Instructions Activity: You may weight bear as tolerated with your walker. You should wear the knee immobilizer for any mobilization to help support the knee and prevent any recurrent rupture. You may gently move the knee but do not attempt any aggressive knee bending. Focus primarily on quadriceps muscular activation with isometric sets, yazan the muscle while keeping the leg against the bed, and straight leg raise. You may do this with a knee immobilizer on or off. You may remove the immobilizer or open the top of the immobilizer while resting. You may apply the CryoCuff or ice bags to the top of the knee. Dressing: The initial dressing may stay in place until your follow-up appointment. You may decide to wrap the leg with an Oskar wrap or utilize a HUDSON hose/compression stocking to prevent some swelling within the leg. Medications: - You should take Tylenol and anti-inflammatory Celebrex as your primary pain control medications. - You have been prescribed a stronger pain medication, oxycodone, for breakthrough pain, take as needed as prescribed. -You have also been prescribed a muscle relaxer to help out with some of the pain and muscle contractions from the repair. - You will be taking aspirin 81 mg twice daily for DVT prevention - If you have constipation you should take Colace or Miralax (both [id number]). It takes most people 3-4 days to have a bowel movement. Follow-up: 2 weeks If you have any acute concerns or questions, please do not hesitate to contact the office at [phone]. You may contact Dr. Austin with any questions after hours through the hospital at [phone] or on his cell phone at [phone]. Stand Alone Forms: Nursing Discharge Form Referrals: Aren Austin MD [ [facility] STAFF PHYSICIAN] - 03/29/24 11:15 am Activity:: Activity as Tolerated Equipment/Supplies:: Walker Diet:: As Tolerated Discharge Orders Discharge Orders: Discharge Order (Routine); Ordered 03/10/24 Ordered By: Aren Austin Discharge Data Discharge Date/Time-TO BE ENTERED AT DEPARTURE: 03/10/24 11:26 DS: Summary Time Spent with Patient providing and/or coordinating discharge services: Less than 30 minutes Status at Discharge Functional status at discharge: uses cane/walker Overall status at discharge: patient is progressing back to baseline Mental Status: mental status grossly normal Speech and Movement: speech and movement normal Mood: congruent mood Affect: normal affect Quality:SDOH Health Related Social Needs: No Data to Display Exam Narrative Exam Narrative: Resting in the hospital bed. No acute distress. Alert and orient x 3. Evaluation of the left leg shows a clean dry and intact dressing. He is able demonstrate a straight leg raise with a lag of about 10 degrees which is much improved from where he was prior to surgery. He does have pain in the quadriceps and over the anterior aspect of the knee and thigh with activation of this muscle. He has intact ankle dorsiflexion, plantarflexion, great toe extension and flexion. Sensation intact to light touch over the deep and superficial peroneal nerve and tibial nerve. Psych Mental Status: mental status grossly normal Speech and Movement: speech and movement normal Mood: congruent mood Affect: normal affect DS: Data Vitals/I&O Vitals and I&O: Vital Signs Temperature 36.8 C 03/10/24 07:31 Temperature Source Temporal Artery Scan 03/10/24 07:31 Pulse 68 03/10/24 07:31 Pulse Rhythm Regular 03/10/24 03:40 Respiratory Rate 20 03/10/24 07:31 Respiratory Effort Normal, Non-Labored 03/10/24 03:40 Respiratory Depth Normal 03/10/24 03:40 Respiratory Pattern Normal 03/10/24 03:40 Blood Pressure 135/71 03/10/24 07:31 Pulse Oximetry 95 03/10/24 07:31 Oxygen Delivery Method Room Air 03/10/24 07:31 Oxygen Flow Rate 0 03/10/24 07:31 Pain Level 4 03/10/24 07:31 Intake & Output 03/09/24 03/09/24 03/10/24 11:59 23:59 11:59 Intake Total 1108.667 / 1108.667 200 / 200 Output Total 100 / 100 450 / 450 Balance 1008.667 / 1008.667 -250 / -250 Weight 114.305 kg Intake: IV 708.667 / 708.667 100 / 100 Oral 400 / 400 100 / 100 Output: Urine 50 / 50 450 / 450 Estimated Blood Loss 50 / 50 Other: Urine Color Yellow Yellow Urine Appearance Clear Clear Comment Patient with chronic melchor catheter. Switched from leg bag to gravity bag. Emesis Description None PFSH All Active Problems Other spontaneous disruption of capsular ligament of left knee (Acute) Arthritis of left hip (Acute) Patellar tendinitis, left knee (Acute) History of total left knee replacement (Acute 12/31/23) Acquired genu valgum of left knee (Acute) Localized osteoarthritis of left knee (Acute) Borderline type 2 diabetes mellitus (Acute) Obesity (Chronic) Hypertension (Chronic) Medical History BPH (benign prostatic hyperplasia) Lumbar spondylosis Allergic rhinitis History of gastric ulcer Surgical History H/O colectomy Ileocolectomy 02/17/15 History of umbilical hernia repair Social History Smoking/Tobacco Use Status: Never Smoking risk assessment performed?: Yes Alcohol Intake: never Drug use: Never Substance use type: does not use Housing: house Do you feel safe at home: Yes Do you feel safe in your relationship?: Yes Time Spent with Patient Time Spent with Patient: <45 minutes Time was spent: obtaining and/or reviewing separately otained hiistory, indepentently interpreting results and counseling the patient
[2024-03-10] MEDS: Acetaminophen 500 MG TAB 1000 MG PO (08:25)
[2024-03-10] MEDS: Finasteride 5 MG TAB PO (08:25)
[2024-03-10] MEDS: Metoprolol CR 25 MG TABCR PO (08:25)
[2024-03-10] MEDS: Lisinopril 20 MG TAB 40 MG PO (08:25)
[2024-03-10] MEDS: Celecoxib 200 MG CAP PO (08:26)
[2024-03-10] MEDS: Dexamethasone 4 MG TAB PO (08:27)
--- NOTE | 2024-03-10 09:28 | PDOC.CMIN ---
Date of service: 03/10/24 Time of Service: 09:28 Care Management Initial Assmt Advance Directives Advance Directives: Do you have an Advance Directive: N 12/25/23 15:24 AD On File at [facility]: N 12/25/23 15:24 Date Asked 03/09/24 03/08/24 14:22 AD Date Reviewed COLST On File at [facility] COLST Date Scanned Code Status Resuscitation Status Full Code Care Team Visit Care Team Role Provider Type Misty Gentile Primary Care Provider NON-[facility] STAFF PHYSICIAN InPatient Wilberto Pablo Other Providers OTHER Aren Austin MD Admit Provider [facility] STAFF PHYSICIAN Attending Provider [facility] All Active Problems Other spontaneous disruption of capsular ligament of left knee (Acute) Arthritis of left hip (Acute) Patellar tendinitis, left knee (Acute) History of total left knee replacement (Acute 12/31/23) Acquired genu valgum of left knee (Acute) Localized osteoarthritis of left knee (Acute) Borderline type 2 diabetes mellitus (Acute) Obesity (Chronic) Hypertension (Chronic) Medical History BPH (benign prostatic hyperplasia) Lumbar spondylosis Allergic rhinitis History of gastric ulcer Surgical History H/O colectomy Ileocolectomy 02/17/15 History of umbilical hernia repair Social History Smoking/Tobacco Use Status: Never Smoking risk assessment performed?: Yes Alcohol Intake: never Drug use: Never Substance use type: does not use Housing: house Do you feel safe at home: Yes Do you feel safe in your relationship?: Yes SDOH(Care Management) Screening Will the Patient Participate in the Screening?: Yes Do you worry about having a steady place to live?: no Problems where you live: no known problems In the past 12 months, have you had to go without electric, gas, oil or water in your home?: no Have you or anyone in your house had to go without enough food to eat?: no Has lack of transportation kept you from medical appointments or from doing things needed for daily living?: no Has anyone in your support network made you feel unsafe for any reason?: no
--- NOTE | 2024-03-10 09:59 | IN_ITS ---
PT Notes Visit Reasons: Left knee arthrotomy rupture Physical Therapy Inpatient Initial Evaluation Date: 03/09/2024 Referring Doctor: Aren Austin MD PT Orders: PT CONSULT: S/P Ortho surgery. S/P arthrotomy repair L TKA. WBAT with knee imoobilizer and walker Precautions: WBAT on left LE with AD. Patient Profile/Admitting Diagnosis: Guillermo is a an 83-year-old male with degenerative joint disease of the left knee S/P L TKA on 12/31/2023 but came with new diagnosis of arthrotomy rupture of L TKA. He is status post repair left total knee arthroplasty on postoperative day 1. PMHX: All Active Problems (Updated 02/27/24 @ 06:53 by Aren Austin MD) Other spontaneous disruption of capsular ligament of left knee (Acute) Arthritis of left hip (Acute) Patellar tendinitis, left knee (Acute) History of total left knee replacement (Acute 12/31/23) Acquired genu valgum of left knee (Acute) Localized osteoarthritis of left knee (Acute) Borderline type 2 diabetes mellitus (Acute) Obesity (Chronic) Hypertension (Chronic) Medical History BPH (benign prostatic hyperplasia) Lumbar spondylosis Allergic rhinitis History of gastric ulcer Surgical History H/O colectomy Ileocolectomy 02/17/15History of umbilical hernia repair Social History/Home Situation: Lives with in a private home with 2 steps to enter without rails. Son and daughter will be available to help out as needed. Independent with all aspects of ADLs prior to surgery. Uses 4 wheeled walker. Equipment Owned/DME: 4WW, SPC, leg catheter bag for a month now Subjective: Reported 4/10 pain on the left knee at rest and with mobility performance. Denied headache, chest pain, and lightheadedness throughout session. Per nurse Ashli, patient uses a leg catheter bag. Objective: General Observation: Urinary leg bag in place. SWAPNA wraps to left LE. Cryocuff to left knee. TEDS to right leg and foot. Mental Status: Alert and oriented x 4 Pain: As above ROM: Right Lower Extremity: Hip flexion WFL. Hip abduction WFL. Knee flexion WFL. Ankle dorsiflexion to neutral only. Ankle plantarflexion WFL. Left Lower Extremity: Hip flexion WFL. Hip abduction WFL. Knee flexion NT. Ankle dorsiflexion to neutral only. Ankle plantarflexion WFL. Strength: Right Lower Extremity: Hip flexors 5/5. Hip abductors 5/5. Knee flexors 5/5. Knee extensors 5/5. Ankle dorsiflexors 3-/5. Ankle plantarflexors 5/5. Left Lower Extremity:Hip flexors 4-/5. Hip abductors 4-/5. Knee flexors NT. Knee extensors NT but patient is able to perform SLR skilled nursing through the range with knee imoobilizer on . Ankle dorsiflexors 3-/5. Ankle plantarflexors 4-/5. Sensation: Intact as to pain and light pressure in bilateral lower extremities Bed Mobility/Transfers: Minimal cueing provided for use of B hands as needed for support, movement sequence, AD management, and posture to reduce fall risk and minimize pain report Supine to sit standby assist Sit to stand stand by assist Stand to sit standby assist Bed to chair contact-guard assist Gait: Facilitated safe and correct performance of level surface ambulation covering a distance of 200 feet with knee immobilizer on using step-to heel toe gait pattern using front wheel walker and minimal verbal cueing for safe gait pattern, AD management, and posture to reduce fall risk and minimize pain level. Readjusted walker height to allow for optimal limb advancement. Stairs: Guided patient with correct and safe negotiation of 3 x 4 inch steps and 2 x 6 inch steps while holding onto a rail with 1 hand and using a single-point cane with the other hand with step to gait pattern requiring minimal verbal cueing for correct limb sequence, increased knee flexion on the left during each ascent, hand placement, and posture to reduce fall risk and minimize pain report. Balance: Static Sitting: Normal Dynamic Sitting: Normal Static Standing: Fair Dynamic Standing: fair Special Tests: Mobility Limitations Standardized Measure [facility] AM-PAC 6 clicks Basic Mobility Inpatient Short Form: Raw Score: 22 CMS Score: 21% deficit Informed Consent/Education: Patient instructed in purpose of PT consult. Packet containing TKA exercise protocol has been given to patient. Education and training on initial set of exercises that can be done at home have been completed with patient. Trained patient with correct performance of exercises below to maximize motor control, joint flexibility, soft tissue extensibility of the L knee musculature: Access Code: [email or web address] URL: [email or web address] Date: 03/10/2024 Prepared by: Lucinda Whalen Exercises - Supine Quad Set - 1 x daily - 7 x weekly - 1 sets - 10 reps - 5 hold - Supine Heel Slide - 1 x daily - 7 x weekly - 1 sets - 10 reps - 5 hold DEFERRED until cleared by surgeon - Supine Ankle Pumps - 1 x daily - 7 x weekly - 1 sets - 10 reps - 5 hold - Small Range Straight Leg Raise - 1 x daily - 7 x weekly - 1 sets - 10 reps - 5 hold - Seated March - 1 x daily - 7 x weekly - 1 sets - 10 reps - 5 hold DEFERRED until cleared by surgeon Assessment: Chanel requires use of a front wheeled walker for mobility ADL performance to maximize independence and reduce fall risk. Patient presents with clinical signs and symptoms consistent with current/admitting diagnoses that have resulted to mobility limitations, gait instability, generalized weakness, and impairment of motor control as demonstrated by the following impairment level findings: 1. Decreased strength to left knee major muscle groups 2. Impaired standing balance 3. Limitation of joint range of motion for active L knee flexion Impairments are contributing to the following functional limitations: 1. Inability to safely ambulate without assistive device 2. Increase completion time for mobility ADL performance 3. Increased fall risk Patient is assessed as a 10309 moderate complexity based on the following: History: 83-year-old male with impairment level findings, functional limitations, and past medical history as indicated above Examination: Demonstrable impairment in strength, balance, and mobility level with underlying impairments and functional limitations as documented above Presentation: Evolving Decision Makin moderate complexity Goals: N/A. PT evaluation and 1-2 treatment sessions only for functional mobility training using recommended AD and for HEP instruction. Plan of Care/Treatment Plan: N/A. PT evaluation and 1-2 treatment session only for functional mobility training using recommended AD and for HEP instruction. DISCHARGE RECOMMENDATIONS: Home when medically cleared by orthopedic surgeon. Recommend outpatient PT services in order to optimize functional mobility outcomes and facilitate return to independent community ambulation without an assistive device. TREATMENT CODE/TIME: 89429 x 20 minutes for 1 unit, 75634 x 10 minutes for 1 unit (9:59-10:29). Thank you for the opportunity to participate in the care of this patient. Please sign an return this page within 30 days if you agree with the above POC. Thank you! Physician Signature Date Thank you for the opportunity to participate in the care of this patient. Lucinda Whalen PT, DPT, CLT [facility] [place], [place]
--- NOTE | 2024-03-10 11:32 | NUR.NOTE ---
Nursing Note: Pt DC home with son via private vehicle. Pt has all personal belongings and has no further questions regarding DC instructions. Pt escorted to main entrance via WC with staff.
== END 2024-03-10 11:26 | disposition home or self-care (01) ==
LOC: SUR 13:14 → MS 16:51
PROVIDERS: Admitting Provider Student in an Organized Health Care Education/Training Program; PCP Family Medicine; Visit Provider Student in an Organized Health Care Education/Training Program
PROC: (CPT 27386; principal; 2024-03-09 16:15)
DX: S76.112A Strain of left quadriceps muscle, fascia and tendon, initial encounter (principal); T81.32XA Disruption of internal operation (surgical) wound, not elsewhere classified, initial encounter; T84.84XA Pain due to internal orthopedic prosthetic devices, implants and grafts, initial encounter; Z96.652 Presence of left artificial knee joint; R73.03 Prediabetes; E66.9 Obesity, unspecified; I10 Essential (primary) hypertension; Z68.34 Body mass index [BMI] 34.0-34.9, adult; X58.XXXA Exposure to other specified factors, initial encounter
CPT/HCPCS: 27386; 97162; 97530; G0378; J0690; J1100; J1170; J2001; J2371; J2401; J2405; J2704; J8540

== ENCOUNTER → 2024-03-22 13:24 | Outpatient (BNVA) | payer MEDICARE, SELFPAY | PROVIDERS: PCP Family Medicine; Referring Provider Family Medicine | DX: Z47.89 Encounter for other orthopedic aftercare (principal); M23.672 Other spontaneous disruption of capsular ligament of left knee ==

== ENCOUNTER → 2024-04-22 10:59 | Outpatient (BNVA) | payer MEDICARE, SELFPAY | PROVIDERS: PCP Family Medicine; Referring Provider Family Medicine | DX: Z47.1 Aftercare following joint replacement surgery (principal); M23.672 Other spontaneous disruption of capsular ligament of left knee; Z96.652 Presence of left artificial knee joint ==

== ENCOUNTER 2024-05-20 15:57 | Outpatient (CLI) | payer MEDICARE, SELFPAY ==
--- NOTE | 2024-05-20 14:08 | DI.RAD_ITS ---
Exam(s) XR KNEE LT 3V AP,LAT,DIONNA EXAM: XR KNEE LT 3V AP,LAT,DIONNA CLINICAL HISTORY: eval painful L TKA. TECHNIQUE: 2D digital imaging was performed. Three images were obtained. Merchant's, AP and lateral views were obtained. COMPARISON: CR XR KNEE LT 2V AP,LAT from 02/26/2024 FINDINGS: BONES: There are stable post operative changes of a left total knee replacement present. No fracture or dislocation. JOINTS: The orthopedic hardware is in good position. No evidence of hardware loosening. SOFT TISSUE: Vascular calcifications are present. IMPRESSION: Stable left total knee replacement.. DATA REPOSITORY: RADIATION DOSE DELIVERED:
== END 2024-05-20 15:58 | disposition home or self-care (01) ==
LOC: DIORS 15:57
PROVIDERS: PCP Family Medicine; Referring Provider Family Medicine; Visit Provider Student in an Organized Health Care Education/Training Program
DX: T84.84XA Pain due to internal orthopedic prosthetic devices, implants and grafts, initial encounter (principal); Z96.652 Presence of left artificial knee joint; Z47.1 Aftercare following joint replacement surgery; M23.672 Other spontaneous disruption of capsular ligament of left knee
CPT/HCPCS: 73562

== ENCOUNTER → 2024-06-21 11:03 | Outpatient (BNVA) | payer MEDICARE, SELFPAY | PROVIDERS: PCP Family Medicine; Visit Provider Student in an Organized Health Care Education/Training Program | DX: Z47.1 Aftercare following joint replacement surgery (principal); M23.672 Other spontaneous disruption of capsular ligament of left knee; T84.84XA Pain due to internal orthopedic prosthetic devices, implants and grafts, initial encounter; Z96.652 Presence of left artificial knee joint | CPT/HCPCS: 99213 ==

== ENCOUNTER 2024-09-09 15:50 | Outpatient (CLI) | payer MEDICARE, SELFPAY ==
--- NOTE | 2024-09-09 10:45 | DI.RAD_ITS ---
Exam(s) XR KNEE LT 2V AP,LAT EXAM: XR KNEE LT 2V AP,LAT INDICATION: eval L TKA, pain and stiffness. COMPARISON: CR XR KNEE LT 3V AP,LAT,DIONNA from 05/20/2024 TECHNIQUE: 2D digital imaging was performed. Two views. FINDINGS: Stable alignment of total knee prosthesis. No abnormal surrounding bony lucencies. DATA REPOSITORY: RADIATION DOSE DELIVERED:
--- NOTE | 2024-09-09 10:45 | DI.RAD_ITS ---
Exam(s) XR ANKLE LT 2V XR FOOT LT COMPLETE EXAM: XR FOOT LT COMPLETE and XR ankle LT 2 V CLINICAL HISTORY: left foot stiffness. TECHNIQUE: 2D digital imaging was performed of the left ankle and foot. Five images were obtained. AP, oblique and lateral views were obtained. COMPARISON: CR XR STANDING ALIGNMENT from 12/22/2023 FINDINGS: BONES: No acute fracture is present. No bony destructive lesion is seen. There is an enthesophyte at the posterior calcaneus. There is a small plantar calcaneal spur. JOINTS: No dislocation present. Mild degenerative changes are seen in the foot. The ankle mortise is intact. SOFT TISSUE: There is mild soft tissue swelling of the forefoot. No soft tissue gas is present. Ath erosclerotic calcification is present. IMPRESSION: 1. Mild degenerative changes of the left foot. 2. Mild soft tissue swelling of the forefoot. No soft tissue gas or radiopaque foreign body. 3. Atherosclerotic calcification is seen in the soft tissues. DATA REPOSITORY: RADIATION DOSE DELIVERED:
== END 2024-09-09 15:51 | disposition home or self-care (01) ==
LOC: DIORS 15:51
PROVIDERS: PCP Family Medicine; Referring Provider Family Medicine; Visit Provider Student in an Organized Health Care Education/Training Program
DX: T84.84XA Pain due to internal orthopedic prosthetic devices, implants and grafts, initial encounter; Z96.652 Presence of left artificial knee joint; M23.672 Other spontaneous disruption of capsular ligament of left knee; R29.898 Other symptoms and signs involving the musculoskeletal system
CPT/HCPCS: 99214; 73560; 73600; 73630

== ENCOUNTER → 2024-12-09 10:49 | Outpatient (BNVA) | payer MEDICARE, SELFPAY | PROVIDERS: PCP Family Medicine; Visit Provider Student in an Organized Health Care Education/Training Program | DX: M23.672 Other spontaneous disruption of capsular ligament of left knee; T84.84XA Pain due to internal orthopedic prosthetic devices, implants and grafts, initial encounter; Z96.652 Presence of left artificial knee joint | CPT/HCPCS: 99214 ==

== ENCOUNTER → 2024-12-13 13:17 | Outpatient (BNVA) | payer MEDICARE, SELFPAY | PROVIDERS: PCP Family Medicine; Referring Provider Family Medicine; Visit Provider Psychiatry & Neurology Neurology | DX: M21.372 Foot drop, left foot (principal); M21.371 Foot drop, right foot; G56.12 Other lesions of median nerve, left upper limb; G56.22 Lesion of ulnar nerve, left upper limb; G62.9 Polyneuropathy, unspecified; R73.9 Hyperglycemia, unspecified; L65.9 Nonscarring hair loss, unspecified; I10 Essential (primary) hypertension; E78.5 Hyperlipidemia, unspecified | CPT/HCPCS: 95911; 99215 ==

== ENCOUNTER → 2025-01-12 12:15 | Outpatient (BNVA) | payer MEDICARE, SELFPAY | PROVIDERS: PCP Family Medicine; Referring Provider Family Medicine; Visit Provider Psychiatry & Neurology Neurology | DX: G62.9 Polyneuropathy, unspecified (principal); M21.371 Foot drop, right foot; M21.372 Foot drop, left foot; G56.12 Other lesions of median nerve, left upper limb; G56.22 Lesion of ulnar nerve, left upper limb | CPT/HCPCS: 99214 ==

== ENCOUNTER 2025-02-16 02:37 | Outpatient (RCR) | payer MEDICARE, SELFPAY ==
[2025-02-16] VITALS (7 sets, daily range): BP systolic 125–160; BP diastolic 68–90; PULSE 50–72; RESP 18; TEMP 36.3–36.9; O2SAT 97–98
[2025-02-16] MEDS: Normal Saline Flush 5 ML SYR IVP (08:08)
[2025-02-16] MEDS: Cetirizine 10 MG TAB PO (08:08)
[2025-02-16] MEDS: IMMUNE GLOBULIN 5 GM/50 ML BTL IVPB (08:13)
[2025-02-16] MEDS: IMMUNE GLOBULIN 10 GM/100 ML BTL IVPB (08:39)
[2025-02-16 08:47] LABS: CREATININE 1.1 mg/dL (0.70-1.30); Estimated GFR 66.61 (mL/min/1.73m2)
[2025-02-16] MEDS: IMMUNE GLOBULIN 20 GM/200 ML BTL IVPB (09:11)
[2025-02-16] MEDS: IMMUNE GLOBULIN 40 GM/400 ML BTL IVPB ×2 (09:51→10:41)
== END 2025-03-05 23:59 | disposition home or self-care (01) ==
LOC: INF 02:37
PROVIDERS: PCP Family Medicine; Visit Provider Psychiatry & Neurology Neurology
DX: G61.81 Chronic inflammatory demyelinating polyneuritis (principal)
CPT/HCPCS: 36415; 96365; 96366; 82565; J1459

== ENCOUNTER 2025-03-16 03:17 | Outpatient (RCR) | payer MEDICARE, SELFPAY ==
[2025-03-16] VITALS (7 sets, daily range): BP systolic 123–155; BP diastolic 70–86; PULSE 52–61; RESP 16–20; TEMP 35.9–36.6; O2SAT 96–99
[2025-03-16] MEDS: Cetirizine 10 MG TAB PO (08:28)
[2025-03-16] MEDS: IMMUNE GLOBULIN 5 GM/50 ML BTL IVPB (08:40)
[2025-03-16 08:59] LABS: CREATININE 1.2 mg/dL (0.70-1.30)
[2025-03-16] MEDS: IMMUNE GLOBULIN 10 GM/100 ML BTL IVPB (09:07)
[2025-03-16] MEDS: Normal Saline Flush 10 ML SYR IVP (09:35)
[2025-03-16] MEDS: IMMUNE GLOBULIN 20 GM/200 ML BTL IVPB (09:46)
[2025-03-16] MEDS: IMMUNE GLOBULIN 40 GM/400 ML BTL IVPB ×2 (10:23→11:23)
== END 2025-04-04 23:59 | disposition home or self-care (01) ==
LOC: INF 03:17
PROVIDERS: PCP Family Medicine; Visit Provider Psychiatry & Neurology Neurology
DX: G61.89 Other inflammatory polyneuropathies (principal)
CPT/HCPCS: 36415; 96365; 96366; 82565; J1459

== ENCOUNTER 2025-04-13 03:31 | Outpatient (RCR) | payer MEDICARE, SELFPAY ==
[2025-04-13] VITALS (8 sets, daily range): BP systolic 131–162; BP diastolic 68–91; PULSE 45–60; RESP 18–22; TEMP 36.1–36.5; O2SAT 96–99
[2025-04-13] MEDS: Cetirizine 10 MG TAB PO (08:14)
[2025-04-13] MEDS: Normal Saline Flush 10 ML SYR IVP (08:15)
[2025-04-13] MEDS: IMMUNE GLOBULIN 5 GM/50 ML BTL 0.59 GM IVPB (08:23)
[2025-04-13 08:46] LABS: Estimated GFR 66.61 (mL/min/1.73m2)
[2025-04-13] MEDS: IMMUNE GLOBULIN 10 GM/100 ML BTL 3 GM IVPB (08:55)
[2025-04-13] MEDS: IMMUNE GLOBULIN 20 GM/200 ML BTL 3 GM IVPB (09:30)
[2025-04-13] MEDS: IMMUNE GLOBULIN 40 GM/400 ML BTL IVPB ×2 (10:10→11:18)
== END 2025-05-05 23:59 | disposition home or self-care (01) ==
LOC: INF 03:31
PROVIDERS: PCP Family Medicine; Visit Provider Psychiatry & Neurology Neurology
DX: G61.81 Chronic inflammatory demyelinating polyneuritis (principal)
CPT/HCPCS: 36415; 96365; 96366; 82565; J1459